=== PATIENT | female | born 1990 | race African-American/Black ===

== ENCOUNTER 2019-12-31 17:20 | Emergency (ER) | payer OTHER ==
[~2019-12-31] VITALS: Ht 165.1 cm; Wt 96.2 kg
--- NOTE | 2019-12-31 18:07 | NUR ---
Patient to ER bed 07 to gown for evaluation. Side rails up.
--- NOTE | 2019-12-31 18:08 | NUR ---
Pt AAOx4 ambulated into ED c/o 08/07 L sided chest wall pain which exacerbates when pt moves L arm. Pt states she was diagnosed with breast tumor x 5 months ago via ultrasound and was told she must wait 6 months for reassesment with PMD. Pt now states she feels swelling to R breast. No other injuries/complaints per pt/noted. Will continue to monitor.
[2019-12-31 18:19] VITALS: BP_SYST 136
--- NOTE | 2019-12-31 18:53 | NUR ---
ER Dr. Ceja at bedside examining patient.
[2019-12-31] MEDS ORDERED: KETOROLAC TROMETHAMINE 30 MG VIAL IVP ONE (19:00)
[2019-12-31 19:46] LABS: BASOPHILS # (AUTO) 0.1 K/uL (0.0-0.2); BASOPHILS % (AUTO) 0.6 % (0.0-2.0); EOSINOPHILS # (AUTO) 0.1 K/uL (0.0-0.4); EOSINOPHILS % (AUTO) 1.2 % (0.0-4.0); HEMATOCRIT 29.8 % (36-48); HEMOGLOBIN 9.2 g/dL (12.0-16.0); LYMPHOCYTES # (AUTO) 2.1 K/uL (1.0-5.5); LYMPHOCYTES % (AUTO) 21.4 % (20.5-51.5); MEAN CORPUSCULAR HEMOGLOBIN 21 pg (27-31); MEAN CORPUSCULAR HGB CONC 31 % (32-36); MEAN CORPUSCULAR VOLUME 68 fL (79.0-98.0); MONOCYTES # (AUTO) 0.5 K/uL (0.0-1.0); MONOCYTES % (AUTO) 5.7 % (1.7-9.3); NEUTROPHILS # (AUTO) 6.8 K/uL (1.8-7.7); NEUTROPHILS % (AUTO) 71.1 % (40.0-70.0); PLATELET COUNT (AUTO) 592 K/uL (130-430); RED BLOOD CELL COUNT(AUTO) 4.41 MIL/uL (4.2-6.2); RED CELL DISTRIBUTION WIDTH 17.7 % (9.0-15.0); WHITE BLOOD COUNT (AUTO) 9.6 K/uL (4.8-10.8)
[2019-12-31 19:53] LABS: CALCIUM 8.7 mg/dL (8.4-11.0); CREATININE 0.55 mg/dL (0.55-1.30); POTASSIUM 3.8 mmol/L (3.5-5.1)
[2019-12-31 19:58] LABS: ALBUMIN 3.9 g/dL (3.4-4.8); TOTAL BILIRUBIN 1.4 mg/dL (0.0-1.0)
[2019-12-31] MEDS ORDERED: LORazepam 2 MG/ML VIAL IVP ONE (20:45)
[2019-12-31] MEDS ORDERED: MORPHINE 2 MG/ML INJ. SYRINGE IVP ONE (20:45)
[2019-12-31] MEDS ORDERED: MORPHINE 4 MG/ML INJ. SYRINGE IVP ONE (21:15)
[2019-12-31 21:46] VITALS: BP_SYST 127
--- NOTE | 2019-12-31 21:46 | NUR ---
Patient given written and verbal discharge instructions and verbalizes understanding. ER MD Christianson discussed with patient the results and treatment provided. Patient in stable condition. ID arm band removed. IV catheter removed intact and dressing applied, no active bleeding. Rx of Motrin given. Patient educated on pain management and to follow up with PMD. Pain Scale 0. Opportunity for questions provided and answered. Medication side effect fact sheet provided.
== END 2019-12-31 21:46 | disposition home or self-care (01) ==
LOC: SED 17:20
DX: N64.4 Mastodynia (principal)
CPT/HCPCS: 36415; 71045; 76641; 80053; 81025; 83880; 84484; 85025; 85379; 96374; 96375; 99285; J1885; J2060; J2270